=== PATIENT | female | born 1955 | race Caucasian/White ===

== ENCOUNTER 2020-12-26 12:06 | Day surgery (SDC) | payer BC ==
[~2020-12-26 12:06] MED LIST: Brimonidine 0.2% Ophth Soln 5 ML Bottle EYEBOTH SCH
[2020-12-26] MEDS: Phenylephrine 2.5% Ophth Soln 2 ML Bot EYEBOTH SCH ×2 (12:11→12:17)
[2020-12-26] MEDS: Tropicamide 1% Ophth Soln 15 ML Bottle EYEBOTH SCH ×2 (12:14→12:20)
[2020-12-26 12:16] VITALS: BP 132/60; PULSE 86
== END 2020-12-26 12:47 | disposition home or self-care (01) ==
LOC: JD.SDS 12:06
PROVIDERS: ATTEND Ophthalmology
DX: H26.493 Other secondary cataract, bilateral (principal); E07.9 Disorder of thyroid, unspecified; Z96.1 Presence of intraocular lens; H16.103 Unspecified superficial keratitis, bilateral; H16.223 Keratoconjunctivitis sicca, not specified as Sjogren's, bilateral; Z79.890 Hormone replacement therapy; J45.909 Unspecified asthma, uncomplicated; Z98.890 Other specified postprocedural states

== ENCOUNTER 2024-07-17 07:52 | Day surgery (SDC) | payer MEDICARE ==
[~2024-07-17 07:52] MED LIST changes: -Brimonidine 0.2% Ophth Soln 5 ML Bottle EYEBOTH SCH; +Dexamethasone 4 MG/ML 5 ML MDV ONE; +EPINEPHrine 1 MG/ML SDV ONE; +Lidocaine 1% 5 ML VIAL ONE; +Midazolam 1 MG/ML 2 ML SDV ONE; +Ondansetron 4 MG/2 ML SDV ONE; +Propofol 200 MG/20 ML SDV ONE; +Rocuronium 50 MG/5 ML Vial ONE; +Ropivacaine 0.5% 5 MG/ML 30 ML SDV ONE; +Sodium Chloride 0.9% 10 ML Syringe FLUSH PRN; +Sodium Chloride 0.9% 10 ML Syringe FLUSH SCH; +ceFAZolin 2 GM Vial ONE; +fentaNYL 250 MCG/5 ML SDV ONE
[2024-07-17] MEDS: Pregabalin 25 MG Cap PO ONE (08:20)
[2024-07-17] MEDS: Acetaminophen 325 MG Tab PO ONE (08:20)
[2024-07-17] MEDS: oxyCODONE ER 10 MG TAB.ER PO ONE (08:20)
[2024-07-17] MEDS ORDERED: fentaNYL 100 MCG/2 ML SDV IVPUSH PRN (08:23)
[2024-07-17] MEDS ORDERED: HYDROmorphone 0.5 MG/0.5 ML Syringe IVPUSH PRN (08:23)
[2024-07-17] MEDS ORDERED: Ondansetron 4 MG/2 ML SDV IVPUSH PRN (08:23)
[2024-07-17] MEDS: Lactated Ringers 1,000 ML IV SCH (08:30)
[2024-07-17] MEDS ORDERED: Lactated Ringers 1,000 ML ONE (09:39)
[2024-07-17] MEDS ORDERED: ePHEDrine 50 MG/ML SDV ONE ×2 (09:42→10:03)
[2024-07-17] MEDS ORDERED: Phenylephrine 1% 10 MG/ML SDV ONE (10:14)
[2024-07-17] MEDS ORDERED: Sugammadex Sodium 200 MG/2 ML VIAL IV ONE (10:32)
[2024-07-17] MEDS ORDERED: Ketorolac 15 MG/ML SDV ONE (10:33)
[2024-07-17] MEDS: Vancomycin 1 GM SDV ONE (10:37)
[2024-07-17] MEDS: Tranexamic Acid 1,000 MG/10 ML Vial ONE (10:37)
[2024-07-17] MEDS: oxyCODONE 5 MG Tab PO PRN (14:38)
[2024-07-17 14:53] VITALS: BP 114/65; PULSE 74
== END 2024-07-17 15:30 | disposition home or self-care (01) ==
LOC: JD.SDS 07:52
PROVIDERS: ATTEND Orthopaedic Surgery
DX: M19.011 Primary osteoarthritis, right shoulder (principal); F41.9 Anxiety disorder, unspecified; E78.00 Pure hypercholesterolemia, unspecified; G47.33 Obstructive sleep apnea (adult) (pediatric); F32.A Depression, unspecified; E03.9 Hypothyroidism, unspecified; K21.9 Gastro-esophageal reflux disease without esophagitis; Z79.890 Hormone replacement therapy; Z79.899 Other long term (current) drug therapy; Z91.013 Allergy to seafood
CPT/HCPCS: 23472; 64447; 76000; 97161; 97530; C1713; C1769; C1776; J0171; J0690; J1100; J1885; J2250; J2371; J2405; J2704; J2795; J3010; J3370; J3490; J7120; 01638; 64415; A9270-GY

== ENCOUNTER 2025-08-13 08:33 | Day surgery (SDC) | payer MEDICARE, OTHER ==
[~2025-08-13 08:33] MED LIST changes: -Dexamethasone 4 MG/ML 5 ML MDV ONE; -EPINEPHrine 1 MG/ML SDV ONE; -Lidocaine 1% 5 ML VIAL ONE; -Midazolam 1 MG/ML 2 ML SDV ONE; -Ondansetron 4 MG/2 ML SDV ONE; -Propofol 200 MG/20 ML SDV ONE; -Rocuronium 50 MG/5 ML Vial ONE; -Ropivacaine 0.5% 5 MG/ML 30 ML SDV ONE; -ceFAZolin 2 GM Vial ONE; -fentaNYL 250 MCG/5 ML SDV ONE
[2025-08-13] MEDS: Lactated Ringers 1,000 ML IV SCH (08:55)
[2025-08-13] MEDS: oxyCODONE ER 10 MG TAB.ER PO ONE (09:08)
[2025-08-13] MEDS ORDERED: EPINEPHrine 1 MG/ML SDV ONE (09:17)
[2025-08-13] MEDS ORDERED: Dexamethasone 4 MG/ML 5 ML MDV ONE (09:17)
[2025-08-13] MEDS ORDERED: dexmedeTOMIDine HCl 200 MCG/2 ML SDV ONE (09:17)
[2025-08-13] MEDS ORDERED: Ropivacaine 0.5% 5 MG/ML 30 ML SDV ONE (09:17)
[2025-08-13] MEDS ORDERED: Midazolam 1 MG/ML 2 ML SDV ONE (09:20)
[2025-08-13] MEDS ORDERED: fentaNYL 100 MCG/2 ML SDV ONE (09:20)
[2025-08-13] MEDS ORDERED: Lidocaine 1% 2 ML ONE (09:21)
[2025-08-13] MEDS ORDERED: propofoL 500 MG/50 ML 50 ML ONE (09:41)
[2025-08-13] MEDS ORDERED: Propofol 200 MG/20 ML SDV ONE (09:44)
[2025-08-13] MEDS ORDERED: Ondansetron 4 MG/2 ML SDV ONE (09:48)
[2025-08-13] MEDS ORDERED: Lactated Ringers 1,000 ML ONE (10:27)
[2025-08-13] MEDS ORDERED: fentaNYL 100 MCG/2 ML SDV IVPUSH PRN (12:01)
[2025-08-13 14:52] VITALS: BP 129/66; PULSE 93
== END 2025-08-13 15:45 | disposition home or self-care (01) ==
LOC: JD.SDS 08:33
PROVIDERS: ATTEND Orthopaedic Surgery
DX: M75.102 Unspecified rotator cuff tear or rupture of left shoulder, not specified as traumatic (principal); M12.812 Other specific arthropathies, not elsewhere classified, left shoulder; E03.9 Hypothyroidism, unspecified; Z91.013 Allergy to seafood; Z91.09 Other allergy status, other than to drugs and biological substances; Z88.8 Allergy status to other drugs, medicaments and biological substances; Z79.899 Other long term (current) drug therapy; Z79.890 Hormone replacement therapy
CPT/HCPCS: 23472; 64415; 76000; 97165; 97535; A9270; C1713; C1769; C1776; J0169; J0690; J1100; J2003; J2250; J2405; J2704; J2795; J3010; J3373; J7120; J3490